=== PATIENT | male | born 1970 | race Caucasian/White ===

== ENCOUNTER 2017-04-18 12:13 | Inpatient (IN) | payer OTHER ==
[2017-04-09 14:13] VITALS: BMI 26.0
--- NOTE | 2017-04-09 14:44 | PAT Medication Instructions ---
Service Date Apr 09, 2017. Current Home Medication List Fluticasone Propionate (Nasal) (Flonase Allergy Relief), 1 DOSE PAM UD Pantoprazole (Protonix), Unknown Dose PO QAM Medication Instructions For Your Scheduled Surgery - Take the following medications the morning of surgery with a sip of water OTHERWISE NOTHING TO EAT OR DRINK AFTER MIDNIGHT: Pantoprazole (Protonix), Unknown Dose PO QAM Fluticasone Propionate (Nasal) (Flonase Allergy Relief), 1 DOSE PAM UD If you have any questions please call us at [phone] or [phone] or [phone]
[2017-04-09 15:03] LABS: URINE APPEARANCE CLEAR (CLEAR); URINE BILIRUBIN NEG (NEG); URINE COLOR YELLOW; URINE NITRITE NEG (NEG); UROBILINOGEN NEG (NEG); ZZUR CULT IF INDIC CLEAN CATCH NO
[2017-04-09 15:05] LABS: BASO % 0.3 %; BASO ABS # 0.03 K/uL (0-0.2); COMPLETE YES; EOS % 3.5 %; HEMATOCRIT 41.6 % (42-52); IG% 0.2 %; LYMPH % 28.7 %; LYMPH ABS # 2.57 K/uL (1.2-3.4); MEAN CELL VOLUME 87.9 fL (80-100); MEAN CORPUSCULAR HEMOGLOBIN 30.4 pg (25-34); MEAN CORPUSCULAR HGB CONC 34.6 g/dl (32-36); NEUT % 62.3 %; PLATELET COUNT 175 K/uL (130-400); RED BLOOD COUNT 4.73 M/uL (4.7-6.1); WHITE BLOOD COUNT 8.94 K/uL (4.8-10.8)
--- NOTE | 2017-04-09 15:05 | DIAGNOSTIC IMAGING REPORT ---
CHEST PREADMISSION(PA/LAT) CLINICAL HISTORY: Preoperative chest COMPARISON STUDY: No previous studies for comparison. FINDINGS: The cardiac and mediastinal contours are normal. There is no evidence of focal pulmonary consolidation. There is no evidence of failure. No pleural effusions are visualized.[ IMPRESSION: No active disease in the chest. Electronically signed by: Noe Cox M.D. 04/09/2017 3:04 PM Dictated Date/Time: 04/09/2017 3:03 PM
[2017-04-09 15:11] LABS: MANUAL MICROSCOPIC REQUIRED? NO; REVIEW REQ? NO
[2017-04-09 15:15] LABS: BUN/CREATININE RATIO 15.4 (10-20); CALCIUM 8.5 mg/dl (8.5-10.1); CREATININE 0.84 mg/dl (0.60-1.40); POTASSIUM 3.3 mmol/L (3.5-5.1)
[2017-04-18] VITALS (7 sets, daily range): BP systolic 106–156; BP diastolic 62–85; PULSE 54–86; TEMP 36.4–36.8; O2SAT 96–99; Ht 185.4 cm; Wt 89.5 kg
[~2017-04-18] VITALS: Ht 185.4 cm; Wt 89.5 kg
[~2017-04-18 12:13] MED LIST: CEFAZOLIN 2000 MG/60 ML D5W IV SCH; FLUT0.15 NAE; LACTATED RINGER'S 1000ML 1,000 ML IV SCH; PRT/20 PO
--- NOTE | 2017-04-18 13:26 | History & Physical Bridge Note ---
H&P Re-Evaluation Bridge Note: I have examined the patient, reviewed the History & Physical and in the interval since the performance of the History & Physical I have noted the following changes of clinical significance: No changes noted
--- NOTE | 2017-04-18 13:26 | History and Physical ---
History & Physical Date Apr 18, 2017. Chief Complaint Chronic back and leg pain History of Present Illness The patient is a 46 year old male with complaints of chronic back and leg pain Additional History Hepatic Disease: No Endocrine Disorder: No Kidney Disease: No Hypertension: No Heart Disease: No Bleeding Tendencies: No Infectious Diseases: No Allergies Coded Allergies: Tramadol (Verified Allergy, Unknown, "I FELT LIKE I OVERDOSED", LIGHTHEADEDNESS, DIZZINESS, 04/18/17) Home Medications Scheduled Fluticasone Propionate (Nasal) (Flonase Allergy Relief), 1 DOSE PAM UD Pantoprazole (Protonix), Unknown Dose PO QAM Diagnosis Lumbar spinal stenosis Plan of Treatment Lumbar decompression and fusion L5-S1
[2017-04-18] MEDS ORDERED: FENTANYL CITRATE INJ 50 MCG/1 ML 2 ML VIAL ONE ×2 (13:33→14:25)
[2017-04-18] MEDS ORDERED: MIDAZOLAM HCL 1 MG/ML 2ML VIAL ONE (13:33)
[2017-04-18] MEDS ORDERED: BACITRACIN 50000 UNIT VIAL ONE (13:54)
[2017-04-18] MEDS ORDERED: BUPIVACAINE/EPINEPHRINE 0.5% MPF 1:200,000 30 ML VIAL ONE (13:54)
[2017-04-18] MEDS ORDERED: HYDROmorphone INJ 2 MG/ML SYR/VIAL ONE (14:25)
[2017-04-18] MEDS ORDERED: LIDOCAINE HCL 2% 2 ML VIAL (20MG/ML) ONE (14:37)
[2017-04-18] MEDS ORDERED: ROCURONIUM BROMIDE 10 MG/ML 5 ML VIAL IV ONE (14:37)
[2017-04-18] MEDS ORDERED: PROPOFOL IV EMULSION 10 MG/ML 20 ML VIAL IV ONE (14:37)
[2017-04-18] MEDS ORDERED: DEXAMETHASONE SOD INJ 4 MG/ML VIAL ONE (14:37)
[2017-04-18] MEDS ORDERED: EpHEDrine SULFATE INJ 50 MG/ML AMP IV PRN (14:45)
[2017-04-18] MEDS ORDERED: FENTANYL CITRATE INJ 50 MCG/1 ML 2 ML VIAL IV PRN (14:45)
[2017-04-18] MEDS ORDERED: HYDROmorphone INJ 1 MG/ML SYR IV PRN (14:45)
[2017-04-18] MEDS ORDERED: ATROPINE SULFATE 0.1 MG/ML 5ML SYR IV PRN (14:45)
[2017-04-18] MEDS ORDERED: ONDANSETRON INJ 2 MG/ML 2 ML VIAL IV PRN ×2 (14:45→15:45)
[2017-04-18] MEDS ORDERED: PROMETHAZINE HCL INJ 6.25 MG in SODIUM CHLORIDE 0.9% 50ML 50 ML IV PRN (14:45)
[2017-04-18] MEDS ORDERED: FLOSEAL HEMOSTATIC MATRIX 10ML TOP ONE (15:27)
[2017-04-18] MEDS ORDERED: SODIUM CHLORIDE 0.9% 1000ML 1,000 ML IV SCH (15:40)
[2017-04-18] MEDS ORDERED: ACETAMINOPHEN IV 100 ML IV PRN (15:45)
[2017-04-18] MEDS ORDERED: hydrOXYzine HCL 25 MG TAB PO PRN (15:45)
[2017-04-18] MEDS ORDERED: BISACODYL 10 MG SUPP PR PRN (15:45)
[2017-04-18] MEDS ORDERED: FAMOTIDINE 20 MG TAB PO PRN (15:45)
[2017-04-18] MEDS ORDERED: LORAZEPAM INJ 0.5 MG in SYRINGE 0.75 ML IV PRN (15:45)
[2017-04-18] MEDS ORDERED: SOD PHOSPHATE/SOD BIPHOSPHATE ENEMA 132 ML BTL PR PRN (15:45)
[2017-04-18] MEDS ORDERED: LORAZEPAM 0.5 MG TAB PO PRN (15:45)
[2017-04-18] MEDS ORDERED: PROMETHAZINE HCL INJ 12.5 MG in SODIUM CHLORIDE 0.9% 50ML 50 ML IV PRN (15:45)
[2017-04-18] MEDS ORDERED: METOCLOPRAMIDE HCL INJ 5 MG/ML 2 ML VIAL IV PRN (15:45)
[2017-04-18] MEDS ORDERED: DO NOT ADMINISTER FLU VACCINE PRN ×3 (15:45)
[2017-04-18] MEDS ORDERED: ALUMINUM/MAGNESIUM SUSP 30 ML UDC PO PRN (15:45)
[2017-04-18] MEDS ORDERED: DO NOT ADMINISTER PNEUMOCOCCAL VACCINE PRN ×2 (15:45)
[2017-04-18] MEDS ORDERED: NALOXONE HCL 0.4 MG/1 ML VIAL/CARP IV PRN ×2 (15:45)
[2017-04-18] MEDS ORDERED: MAGNESIUM HYDROXIDE SUSP 30 ML UDC PO PRN (15:45)
--- NOTE | 2017-04-18 15:50 | [facility] Operative Report ---
Operative Report Operative Date Apr 18, 2017. Pre-Operative Diagnosis Lumbar Spinal Stenosis. Post-Operative Diagnosis Lumbar Spinal Stenosis. Procedure(s) Performed #1 lumbar decompression medial facetectomies foraminotomies L5-S1. #2 posterior spinal fusion L5-S1. #3 placement posterior instrumentation L5-S1. #4 interbody fusion L5-S1. #5 placement peek cage 11 x 26 mm at L5-S1. #6 placement locally harvested morcellized autograft in the posterior gutters. #7 placement of ostial amp in the interbody space and posterior lateral gutters. Surgeon Operator Electronic Warfare Surgeon(s) Amanda Aguirre PA-C Estimated Blood Loss 50mL Findings Spinal stenosis Specimens None per surgeon. Description of Procedure Patient was met with preoperatively case discussed all questions are dressed. After informed consent patient was taken to the operative suite and intubated placed in a prone position on the Oli table on top of the Stanton frame. All bony prominences were well-padded and eyes inspected to ensure no external pressure. Lumbar spine was prepped and draped in the normal sterile fashion. Sharp dissection with the assistance of Bovie cautery was performed onto an exposing the lamina and transverse processes of L5 and sacral alar bilaterally. From a caudal to cephalad fashion complete laminectomy of L5 was performed including medial facetectomies and foraminotomies. Pedicle screws are then placed in L5 and S1 bilaterally. The purposes poly placed. Through a transforaminal approach on the right complete discectomy of L5 S1 was performed and plate created subcortical bleeding bone and a limb by 26 [place] peek cage filled with ostial amp tapped in position. The rods were then locked and final position bilaterally. Transverse processes of L5 and sacral alar burred to subcortical bleeding bone. Locally harvested morcellized autograft the remaining ostial amp bone graft placed in the posterior gutters. 15 round KEYUR drain was inserted. Incision was then closed with 1 Vicryl in the fascia 2-0 Vicryl subcutaneously 4-0 Monocryl for final skin closure Steri-Strip sterile dressing placed. Patient we can taken to PACU in a stable condition. Please note Amanda Kirkpatrick was present throughout the entire procedure involved in patient positioning complex portions of the surgery and final skin closure. I attest to the content of the Intraoperative Record and any orders documented therein. Any exceptions are noted below.
--- NOTE | 2017-04-18 15:55 | DIAGNOSTIC IMAGING REPORT ---
LUMBAR SPINE 2 OR 3 VIEW CLINICAL HISTORY: L5-S1 FUSION/INTERBODY COMPARISON STUDY: Lumbar spine radiographs September 07, 2015. Fluoroscopy time: 11.6 seconds. FINDINGS: 2 fluoroscopic images demonstrate an L5-S1 discectomy with interbody spacer placement. There is a posterior decompression with bilateral pedicle screws at the L5 and S1 levels. The hardware is intact. There are interconnecting rods. IMPRESSION: Expected findings following L5-S1 discectomy and bilateral pedicle screw fusion. Electronically signed by: Scar Maria M.D. 04/18/2017 3:54 PM Dictated Date/Time: 04/18/2017 3:53 PM
[2017-04-18] MEDS ORDERED: HYDROmorphone HCL 0.5MG/ML 50 ML CASSETTE ONE (15:57)
--- NOTE | 2017-04-18 16:20 | Anesthesiology Progress Note ---
Anesthesia Post Op Note Date & Time Apr 18, 2017 at 16:20 Vital Signs Pain Intensity: 6 Vital Signs Past 12 Hours Date Time Temp Pulse Resp B/P (MAP) Pulse Ox O2 Delivery O2 Flow Rate FiO2 04/18/17 15:54 36.6 80 16 129/80 100 Oxymask 10 04/18/17 12:34 36.4 77 20 136/84 97 Room Air Notes Mental Status: alert / awake / arousable, participated in evaluation Pt Amnestic to Procedure: Yes Nausea / Vomiting: adequately controlled Pain: adequately controlled Airway Patency, RR, SpO2: stable & adequate BP & HR: stable & adequate Hydration State: stable & adequate Anesthetic Complications: no major complications apparent
[2017-04-18] MEDS: HYDROmorphone HCL 0.5MG/ML 50 ML CASSETTE IV PRN ×2 (16:53→23:25)
[2017-04-18] MEDS: LACTATED RINGER'S 1000ML 1,000 ML IV SCH ×2 (17:33→21:52)
[2017-04-18] MEDS ORDERED: INFLUENZA ADMINISTRATION CHARGE ONE (19:00)
[2017-04-18] MEDS ORDERED: INFLUENZA VIRUS QUAD VACCINE 0.5 ML SYR IM. ONE (19:00)
[2017-04-18] MEDS: DOCUSATE SODIUM/SENNA 50/8.6MG TAB PO SCH (21:07)
[2017-04-18] MEDS: CEFAZOLIN IV 2,000 MG in DEXTROSE 5% 50ML 50 ML IV SCH (21:53)
[2017-04-18] MEDS: DEXAMETHASONE INJ 6 MG in SYRINGE 0 ML IV SCH (21:53)
[2017-04-19] MEDS: LACTATED RINGER'S 1000ML 1,000 ML IV SCH (05:00)
[2017-04-19] MEDS ORDERED: HYDROmorphone INJ 0.5 MG/0.5 ML SYR IV PRN (06:00)
[2017-04-19] MEDS ORDERED: DC PCA SCH (06:00)
[2017-04-19] MEDS ORDERED: HYDROmorphone INJ 1 MG/ML SYR IV PRN (06:00)
[2017-04-19] MEDS ORDERED: OXYCODONE HCL IR 5 MG TAB (IMMEDIATE RELEASE) PO PRN (06:00)
[2017-04-19] MEDS: CEFAZOLIN IV 2,000 MG in DEXTROSE 5% 50ML 50 ML IV SCH (06:15)
[2017-04-19] MEDS ORDERED: NURSING VERBAL MED ORDER ONE ×3 (07:15→13:15)
[2017-04-19 07:39] LABS: BASO % 0.1 %; BASO ABS # 0.01 K/uL (0-0.2); COMPLETE YES; HEMATOCRIT 42.7 % (42-52); IG% 0.5 %; LYMPH % 6.9 %; LYMPH ABS # 1.37 K/uL (1.2-3.4); MEAN CELL VOLUME 88.2 fL (80-100); MEAN CORPUSCULAR HEMOGLOBIN 29.5 pg (25-34); MEAN CORPUSCULAR HGB CONC 33.5 g/dl (32-36); MONO % 2.7 %; NEUT % 89.8 %; PLATELET COUNT 198 K/uL (130-400); RED BLOOD COUNT 4.84 M/uL (4.7-6.1); WHITE BLOOD COUNT 19.81 K/uL (4.8-10.8)
[2017-04-19 08:04] VITALS: BP 124/62; PULSE 82; TEMP 36.8; O2SAT 93
[2017-04-19 08:11] LABS: BUN/CREATININE RATIO 15.1 (10-20); CREATININE 0.85 mg/dl (0.60-1.40); POTASSIUM 3.9 mmol/L (3.5-5.1)
[2017-04-19] MEDS: ACETAMINOPHEN 500 MG TAB PO PRN ×2 (08:14→18:33)
[2017-04-19] MEDS: DEXAMETHASONE INJ 6 MG in SYRINGE 0 ML IV SCH ×2 (08:15→14:16)
--- NOTE | 2017-04-19 10:07 | Anesthesiology Progress Note ---
Anesthesia Post Op Note Date & Time Apr 19, 2017 at 10:07 Vital Signs Pain Intensity: 3.0 Vital Signs Past 12 Hours Date Time Temp Pulse Resp B/P (MAP) Pulse Ox O2 Delivery O2 Flow Rate FiO2 04/19/17 08:04 36.8 82 19 124/62 (82) 93 Room Air 04/19/17 00:15 Room Air 04/18/17 23:00 36.6 54 18 118/71 (87) 96 Room Air Notes Mental Status: alert / awake / arousable, participated in evaluation Pt Amnestic to Procedure: Yes Nausea / Vomiting: adequately controlled Pain: adequately controlled Airway Patency, RR, SpO2: stable & adequate BP & HR: stable & adequate Hydration State: stable & adequate Anesthetic Complications: no major complications apparent
[2017-04-19 10:38] VITALS: BP 109/72; PULSE 80; O2SAT 93
[2017-04-19] MEDS ORDERED: FLUTICASONE PROPIONATE NA SPR 16 GM BTL PRN (11:30)
--- NOTE | 2017-04-19 11:55 | Progress Note ---
Progress Note Date of Service Apr 19, 2017. Progress Note Back pain is controlled. Leg pain improved. Vital signs stable. On exam he is complaining halls demonstrated excellent strength testing. Assessment status post lumbar decompression fusion replant this time will maintain the KEYUR drain another 24 hours anticipate home tomorrow.
[2017-04-19] MEDS ORDERED: RXC5 PO (11:59)
--- NOTE | 2017-04-19 12:00 | Discharge Instructions ---
Discharge Instructions Date of Service Apr 19, 2017. Admission Reason for Admission: Spinal Stenosis Discharge Discharge Diagnosis / Problem: lumbar stenosis Discharge Goals Goal(s): Improve function Activity Recommendations Activity Limitations: per Instructions/Follow-up section . Instructions / Follow-Up Instructions / Follow-Up ACTIVITY RECOMMENDATIONS: SELF CARE INSTRUCTIONS AFTER THORACIC/LUMBAR FUSIONS 1. You may walk to your tolerance. It is good exercise for your legs and back. Expect some back and intermittent leg aches and pains. 2. You may perform "counter-top" level activities (make a sandwich, carmelo with a project, etc.). 3. No bending or lifting of more than 10 pounds or back twisting of any nature (roll like a log when turning in bed). 4. You may ride in a car for 20-30 minutes at a time. No driving until after your first visit with your doctor. 5. Frequent changes of position and restricting sitting to 30 minutes at a time will help limit the amount of back spasms and stiffness you may experience. 6. You may discontinue the use of ambulatory aids (cane, crutches, etc.) once your strength and confidence allow. 7. You may washing machine repairer the shower and let water strike your incision when you arrive home at least once daily. Do not take a tub bath, sit in a hot tub or go into a swimming pool until after your first recheck in the office. SPECIAL CARE INSTRUCTIONS: VERY IMPORTANT TO READ AND REVIEW A. Your surgical incision has been closed with a cosmetic suture under the skin that will dissolve in about 6 weeks. In 14 days, you can use a pair of clean scissors and cut the suture that is left outside of the skin at the ends of your incision. 1. The small skin tapes can be removed 7 days after surgery if they have not fallen off by that point. 2. You may keep the wound open to air as much as possible to promote healing after post-op day number 5 unless told otherwise by your doctor. 3. If you think the wound looks like it is becoming infected (redness or worsening drainage) and/or you are experiencing fever, chill or worsening back pain and muscle spasms, contact the office so that we may evaluate you as soon as possible. B. Complications are uncommon, but please contact us if you have any signs or symptoms of: 1. wound infection (fever higher than 102.5 degrees F, redness, separation of wound, drainage, or increasing pain from the incision) 2. blood clots in legs (pain, swelling, redness and warmth in legs) 3. urinary tract infection (fever higher than 102.5 degrees F, burning upon urination or increased frequency of urination) 4. nerve problems (inability to walk on your toes or heels, numbness, loss of bowel or bladder control) 5. any other symptoms that concern you C. Please call the office at if you have any concerns or questions about your operation or recovery. D. No smoking! Smoking drastically decreases the chance of a solid fusion. E. Do not take any anti-inflammatory medications (Indocin, Advil, Motrin, Aspirin, Naprosyn, etc.) as these may inhibit the chance of a solid fusion. Tylenol is okay to take for pain. MANAGING PAIN AFTER SPINAL SURGERY 1. Narcotic medication is intended for short-term use and will be provided for surgical pain. Surgical pain usually lasts for a period of 4-6 weeks. Narcotic medication includes Percocet, Vicodin, Darvocet, Tylenol #3 or Lortab. 2. Longer-term pain is more appropriately treated with non-narcotic medication such as Tylenol ES. 3. Muscle spasm is not appropriately treated with narcotics. Muscle relaxers such as Soma, Flexeril or Skelaxin can be used along with Tylenol ES. 4. Remember that we all live with some "aches and pains". This is not unusual or uncommon after an injury or as we get older. a. Back pain is expected and may include muscle spasms for 4 to 6 weeks after surgery. The pain should gradually improve. If the pain worsens for no apparent reason, please contact the office. b. Intermittent leg pain may also be experienced and should not be concerned about unless it worsens for no apparent reason. If so, please contact the office. 5. We will provide appropriate medication within the normal guidelines of their prescribed use. We will also be very cautious and aware of potential abuse and extended duration of patients' medication needs. a. Pain medications are for your comfort and to assist with sleep and rest so that the tissue can heal. They are not provided in order to return to normal activity and should not be used through the day. To do so or worsening pain at night can result from ongoing tissue damage and development of tolerance to the prescribed medicine. 6. Please allow 2-3 days to process refills. Prescriptions will not be mailed but must be picked up at the office. FOLLOW UP VISIT: Keep your scheduled follow-up appointment. Any questions, please call the office at . Current Hospital Diet Patient's current hospital diet: Regular Diet Discharge Diet Recommended Diet: Regular Diet Procedures Procedures Performed: #1 lumbar decompression medial facetectomies foraminotomies L5-S1. #2 posterior spinal fusion L5-S1. #3 placement posterior instrumentation L5-S1. #4 interbody fusion L5-S1. #5 placement peek cage 11 x 26 mm at L5-S1. #6 placement locally harvested morcellized autograft in the posterior gutters. #7 placement of ostial amp in the interbody space and posterior lateral gutters. Pending Studies Studies pending at discharge: no Medical Emergencies . Who to Call and When: Medical Emergencies: If at any time you feel your situation is an emergency, please call 911 immediately. . Non-Emergent Contact Non-Emergency issues call your: Primary Care Provider . "Provider Documentation" section prepared by Nick De Anda. . VTE Core Measure Inpt VTE Proph given/why not?: Kelly Young, [facility]
[2017-04-19] MEDS: PANTOprazole SOD 40 MG TAB PO SCH (14:15)
[2017-04-19 14:59] VITALS: BP 103/62; PULSE 70; TEMP 36.8; O2SAT 93
[2017-04-19] MEDS: DOCUSATE SODIUM/SENNA 50/8.6MG TAB PO SCH (22:22)
[2017-04-19 23:50] VITALS: BP 118/69; PULSE 66; TEMP 36.7; O2SAT 94
[2017-04-20] MEDS ORDERED: POLYETHYLENE (MIRALAX) 17 GM PACK PO SCH (06:00)
[2017-04-20 07:46] VITALS: BP 112/69; PULSE 75; TEMP 36.8; O2SAT 95
[2017-04-20] MEDS: PANTOprazole SOD 40 MG TAB PO SCH (08:33)
[2017-04-20 09:58] VITALS: BP 112/69; PULSE 75; TEMP 36.8; O2SAT 95
[2017-04-20] MEDS: ACETAMINOPHEN 500 MG TAB PO PRN (10:23)
--- NOTE | 2017-04-20 16:03 | Discharge Summary ---
Orthopedic Discharge Summary Admission Date/Reason Apr 18, 2017 at 15:45 Spinal Stenosis. Discharge Date/Disposition Apr 20, 2017 Home Diagnosis Principal Diagnosis: Lumbar spinal stenosis Admission Physical Exam As per Admitting History & Physical. Hospital Course Patient underwent lumbar decompression fusion tolerated this well as taken to the orthopedic floor postoperatively. Postoperative day 1 is up in amatory leg symptoms markedly improved stability in 2 weeks continued progressed pain is controlled subsequently discharged home. Discharge orders and instructions found on the chart for further review. Discharge Instructions Please refer to the electronic Patient Visit Report (Discharge Instructions) for additional information.
== END 2017-04-20 11:20 | disposition home or self-care (01) | DRG 460 ==
LOC: C.ACU 12:13 → C.3E 15:45 → ENRESERV 16:31 → C.MSW 22:59
PROVIDERS: ADMIT Orthopaedic Surgery Orthopaedic Surgery of the Spine; ATTEND Orthopaedic Surgery Orthopaedic Surgery of the Spine
PROC: 0SG10AJ Fusion of 2 or more Lumbar Vertebral Joints with Interbody Fusion Device, Posterior Approach, Anterior Column, Open Approach (ICD-10-PCS; principal; 2017-04-18 14:15)
PROC: 0SG10J1 Fusion of 2 or more Lumbar Vertebral Joints with Synthetic Substitute, Posterior Approach, Posterior Column, Open Approach (ICD-10-PCS; principal; 2017-04-18 14:15)
DX: M48.06 Spinal stenosis, lumbar region (principal)

== ENCOUNTER 2019-08-29 05:52 | Observation (INO) ==
--- NOTE | 2019-08-14 13:04 | PAT Medication Instructions ---
Medication Instructions Date of Service August 14, 2019 Home Medications Wellbutrin SR 1 tab PO BID acetaminophen [Tylenol] 325 mg PO QID PRN [id number]-yonflpztdlimp-axjrubmb [Excedrin Migraine] 1 tab PO Q6H PRN baclofen 15 mg PO BID fluticasone furoate 50 mcg INHALATION UD PRN gabapentin 600 mg PO QID meloxicam 15 mg PO QAM pantoprazole [Protonix] 40 mg PO QAM ASK your surgeon for instructions [id number]-ctecepmfqpcjp-ghlfcbbo [Excedrin Migraine] 1 tab PO Q6H PRN meloxicam 15 mg PO QAM DO NOT take the morning of surgery baclofen 15 mg PO BID Take morning of surgery With a small sip of water, OTHERWISE NOTHING TO EAT OR DRINK AFTER MIDNIGHT: Wellbutrin SR 1 tab PO BID acetaminophen [Tylenol] 325 mg PO QID PRN (okay to take up to 4 hours prior to surgery if needed) fluticasone furoate 50 mcg INHALATION UD PRN (if needed) gabapentin 600 mg PO QID pantoprazole [Protonix] 40 mg PO QAM Take evening before surgery Wellbutrin SR 1 tab PO BID acetaminophen [Tylenol] 325 mg PO QID PRN (if needed) baclofen 15 mg PO BID fluticasone furoate 50 mcg INHALATION UD PRN (if needed) gabapentin 600 mg PO QID Other Notes If you have any questions please call us at [phone] or [phone] or [phone] or [phone]
--- NOTE | 2019-08-15 10:22 | Anesthesiology Consultation ---
Date of Service August 15, 2019 Assessment & Plan (1) Encounter for pre-operative examination: Chart Review Chart Review: Acceptable Risk for Surgery and Patient seen in Pre Admission Testing Teaching & Discussion Pre-Anesthesia Teaching/Discussion Notes: Instructed NPO after midnight before surgery,except medications with 15 cc of water. Medication instructions provided according to the PAT guidelines. History Surgery Operation Date: 08/29/19 13:35 Proposed Procedures p C5-C7 Anterior Cervical Discectomy Fusion, Possible C4-C5, Spinal Cord Monitoring - Nick De Anda DO Height/Weight Height: 6 ft 2 in Weight: 101.4 kg Allergies Allergy/AdvReac Type Severity Reaction Status Date / Time tramadol AdvReac Unknown lightheaded, Verified 08/15/19 10:23 dizziness Medications Home Medications Medication Instructions Recorded Confirmed Last Taken Wellbutrin SR 1 tab PO BID 08/12/19 08/12/19 Unknown acetaminophen [Tylenol] 325 mg PO QID PRN 08/12/19 08/12/19 Unknown bvpdtim-xgeenwpuognmc-rkgubqfg 1 tab PO Q6H PRN 08/12/19 08/12/19 Unknown [Excedrin Migraine] baclofen 15 mg PO BID 08/12/19 08/12/19 Unknown fluticasone furoate 50 mcg INHALATION UD PRN 08/12/19 08/12/19 Unknown gabapentin 600 mg PO QID 08/12/19 08/12/19 Unknown meloxicam 15 mg PO QAM 08/12/19 08/12/19 Unknown pantoprazole [Protonix] 40 mg PO QAM 08/12/19 08/12/19 Unknown Past Medical History Medical History Carpal tunnel syndrome Cubital tunnel syndrome Degenerative disc disease GERD (gastroesophageal reflux disease) controlled History of migraine IBS (irritable bowel syndrome) Osteoarthritis Sciatica Spinal stenosis Exercise / Class Metabolic Activity II 4-5 Yardwork/Stairs/Walk up hill (one flight of stairs (no chest pain/no sob)) Past Family History Family History Grandmother (Paternal) Family history of diabetes mellitus Grandmother (Maternal) Family history of diabetes mellitus Grandfather (Maternal) Family hx of colon cancer Other No family history of adverse response to anesthesia Past Surgical History Surgical History History of lumbar fusion L5-S1: 04/18/17: MAC#3, ETT 8.0 at [facility] History of shoulder surgery RT History of tooth extraction S/P cubital tunnel release Status post excision of lipoma Past Anesthesia History No Hx of Anesthesia Complications and No Family Hx of Anesthesia Complications History of PONV History of PONV (resolved with medical therapy quickly x 1 episode with prior lumbar surgery) and Hx of Motion Sickness STOP BANG Total 2 Social History Smoking Status: Current every day smoker tobacco type: cigarettes Smoking cigarettes per day: 10 cigarettes/day x 20 years Do You Dip or Chew Tobacco: No Hx Alcohol Use: No Hx Substance Use: No Review of Systems Controlled reflux. Patient denies chest pain, shortness of breath, dyspnea on exertion, cough, wheezing, palpitations. Physical Exam Vital Signs VITALS BP 115/80 P 71 TEMP 97.8 SP02 96%RA RESP 18 PHYSICAL Decreased cervical extension 2/2 cervicalgia Full TMJ range of motion. TMD 3.5 finger breaths Mallampati Score 2 Dentition: several missing teeth including left lower front tooth, + partials Lungs: clear throughout to auscultation Cardiac: regular rate and rhythm, no murmurs noted Spine: normal Carotid arteries: negative bruit Extremities: no edema + reis (medium length, thin reis from chin, neck/check area clean- advised patient to trim prior to surgery otherwise will need to be discussed with anesthesiologist AM DOS if further trimming needed) Testing Laboratory Results 08/15/19 10:36 08/15/19 10:36 PT 10.9 Seconds (9.0-12.0) 08/15/19 10:36 INR 1.1 (0.9-1.1) 08/15/19 10:36 APTT 26.6 Seconds (21.0-31.0) 08/15/19 10:36 Urine Color Yellow 08/15/19 10:36 Urine Appearance Clear (Clear) 08/15/19 10:36 Urine pH 6.0 (4.5-7.5) 08/15/19 10:36 Ur Specific Lyman 1.008 (1.000-1.030) 08/15/19 10:36 Urine Protein Negative (Negative) 08/15/19 10:36 Urine Glucose (UA) Negative (Negative) 08/15/19 10:36 Urine Ketones Negative (Negative) 08/15/19 10:36 Urine Nitrite Negative (Negative) 08/15/19 10:36 Ur Leukocyte Esterase Negative (Negative) 08/15/19 10:36 Blood Type A Positive 08/15/19 10:36 Antibody Screen NEGATIVE 08/15/19 10:36 Electrocardiogram Date: 08/15/19 NSR at 67bpm. Rightward axis. iRBBB. No significant change compared to 04/09/17 per cardiology. Chest X-Ray Date: 08/15/19 Subsegmental atelectasis left base. Otherwise negative study.
--- NOTE | 2019-08-15 11:12 | XRay Report ---
XR chest Pre-admission PA/Lat CLINICAL HISTORY: pat preoperative evaluation COMPARISON STUDY: 2016 FINDINGS: Subsegmental atelectasis left base. Lungs otherwise appear clear. Diaphragms are smooth. IMPRESSION: Subsegmental atelectasis left base. Otherwise negative study. ACT 112: Negative or not required by law. The above report was generated using voice recognition software. It may contain grammatical, syntax or spelling errors. Electronically signed by: Brandon Ruby M.D. 08/15/2019 11:10 AM
[2019-08-15 11:31] LABS: Basophils # (auto) 0.04 K/uL (0-0.2); Basophils % (auto) 0.5 %; Eosinophils # (auto) 0.36 K/uL (0-0.5); Eosinophils % (auto) 4.1 %; Hematocrit (blood only) 46.7 % (42-52); Hemoglobin 16.1 g/dL (14.0-18.0); Immature Granulocytes # (auto) 0.02 K/uL (0.00-0.02); Immature Granulocytes % (auto) 0.2 %; Lymphocytes # (auto) 2.56 K/uL (1.2-3.4); Lymphocytes % (auto) 28.9 %; Mean Corpuscular Hgb Conc 34.5 g/dL (32-36); Mean Corpuscular Volume 87.1 fL (80-100); Mean Platelet Volume 11.1 fL (7.4-10.4); Monocytes # (auto) 0.45 K/uL (0.11-0.59); Monocytes % (auto) 5.1 %; Neutrophils # (auto) 5.42 K/uL (1.4-6.5); Neutrophils % (auto) 61.2 %; Platelet Count 164 K/uL (130-400); RDW Coefficient of Variation 13.4 % (11.5-14.5); RDW Standard Deviation 42.6 fL (36.4-46.3); Red Blood Count 5.36 M/uL (4.7-6.1); White Blood Count 8.85 K/uL (4.8-10.8)
[2019-08-15 11:32] LABS: Appearance Urine Clear (Clear); Bilirubin Urine Negative (Negative); Blood Urine Negative (Negative); Color Urine Yellow; Glucose Urine UA Negative (Negative); Ketones Urine Negative (Negative); Leukocyte Esterase Urine Negative (Negative); Nitrite Urine Negative (Negative); Protein Urine Negative (Negative); Specific Gravity Urine 1.008 (1.000-1.030); Urobilinogen Urine Negative (Negative)
[2019-08-15 11:37] LABS: BUN Creatinine Ratio 18.5 (10-20); Calcium 8.9 mg/dl (8.5-10.1); Creatinine Clr Calc Pharmacy 101.8 ml/min; Est GFR (African American) 88.3; Est GFR (Non-African American) 76.2
[2019-08-15 11:46] LABS: INR 1.1 (0.9-1.1); Partial Thromboplastin Time 26.6 Seconds (21.0-31.0); Prothrombin Time 10.9 Seconds (9.0-12.0)
--- NOTE | 2019-08-15 12:16 | Electrocardiogram Report ---
Test Reason : Blood Pressure : / mmHG Vent. Rate : 067 BPM Atrial Rate : 067 BPM P-R Int : 170 ms QRS Dur : 098 ms QT Int : 402 ms P-R-T Axes : -10 094 066 degrees QTc Int : 424 ms Normal sinus rhythm Rightward axis Incomplete right bundle branch block Borderline ECG When compared with ECG of 09-APR-2017 14:10, No significant change was found Confirmed by Bret Alberts ([id number]) on 08/15/2019 12:16:34 PM Referred By: Nick De Anda Confirmed By:Bret Alberts
[2019-08-29] MEDS ORDERED: ACETAMINOPHEN 500 MG TAB PO SCH (06:00)
[2019-08-29] MEDS ORDERED: GABAPENTIN 900 MG DOSE PO SCH (06:00)
[2019-08-29] MEDS ORDERED: CEFAZOLIN 2000MG 2,000 MG/15 ML SYR IV SCH (06:00)
[2019-08-29] MEDS ORDERED: CeleBREX 200 MG CAP PO SCH (06:00)
[2019-08-29] MEDS ORDERED: LR 15ML/HR IV SCH (06:00)
[2019-08-29] MEDS ORDERED: PROPOFOL IV EMULSION 10 MG/ML 100 ML VIAL IV ONE (06:46)
[2019-08-29] MEDS ORDERED: ONDANSETRON INJ 2 MG/ML 2 ML VIAL ONE (06:47)
[2019-08-29] MEDS ORDERED: DEXAMETHASONE SOD INJ 4 MG/ML VIAL ONE ×2 (06:47→08:19)
[2019-08-29] MEDS ORDERED: fentaNYL citrate 100 MCG/2 ML VIAL ONE ×2 (06:48→08:06)
[2019-08-29] MEDS ORDERED: HYDROmorphone INJ 2 MG/ML SYR/VIAL ONE (06:48)
[2019-08-29] MEDS ORDERED: MIDAZOLAM HCL 1 MG/ML 2ML VIAL ONE (06:48)
[2019-08-29] MEDS ORDERED: ePHEDrine sulfate 50 MG/ML AMP IV PRN (06:55)
[2019-08-29] MEDS ORDERED: ATROPINE SULFATE 0.1 MG/ML 10ML SYR IV PRN (06:55)
[2019-08-29] MEDS ORDERED: fentaNYL citrate 100 MCG/2 ML VIAL IV PRN (06:55)
[2019-08-29] MEDS ORDERED: ONDANSETRON INJ 2 MG/ML 2 ML VIAL IV PRN ×2 (06:55→11:09)
[2019-08-29] MEDS ORDERED: SCOPOLAMINE 1.5 MG TDSY ONE (07:02)
[2019-08-29] MEDS ORDERED: SCOPOLAMINE 1.5 MG TDSY TD ONE (07:04)
[2019-08-29] MEDS ORDERED: BACITRACIN INJ 50,000 UNIT VIAL ONE (07:11)
--- NOTE | 2019-08-29 07:20 | History & Physical Bridge Note ---
Date of Service August 29, 2019 History & Physical Bridge Note I have examined the patient, reviewed the History & Physical and in the interval since the performance of the History & Physical I have noted the following changes of clinical significance: no changes noted
--- NOTE | 2019-08-29 07:21 | History & Physical Report ---
Date of Service August 29, 2019 Assessment & Plan (1) Cervical stenosis of spinal canal: C5-C7 anterior cervical discectomy and fusion, possible C4-C5 fusion Present on Admission?: Yes History of Present Illness Chief Complaint: Neck and arm pain Primary Care Provider: Salvador Chavez MD This is a 49-year-old male presents with chronic persistent neck and arm symptoms. After failing extensive course of nonoperative care he is here for surgical intervention. Allergies Allergy/AdvReac Type Severity Reaction Status Date / Time tramadol AdvReac Unknown lightheaded, Verified 08/29/19 06:21 dizziness Home Medications Home Medications Medication Instructions Recorded Confirmed Type Wellbutrin SR 1 tab PO BID 08/12/19 08/29/19 History acetaminophen [Tylenol] 325 mg PO QID PRN 08/12/19 08/29/19 History xpqvkqq-mptnzmmvtsejr-eyppgzwn 1 tab PO Q6H PRN 08/12/19 08/29/19 History [Excedrin Migraine] baclofen 15 mg PO BID 08/12/19 08/29/19 History fluticasone furoate 50 mcg INHALATION UD PRN 08/12/19 08/29/19 History gabapentin 600 mg PO QID 08/12/19 08/29/19 History meloxicam 15 mg PO QAM 08/12/19 08/29/19 History pantoprazole [Protonix] 40 mg PO QAM 08/12/19 08/29/19 History Past Med/Surg History Medical History Carpal tunnel syndrome Cubital tunnel syndrome Degenerative disc disease GERD (gastroesophageal reflux disease) controlled History of migraine IBS (irritable bowel syndrome) Osteoarthritis Sciatica Spinal stenosis Surgical History History of lumbar fusion L5-S1: 04/18/17: MAC#3, ETT 8.0 at [facility] History of shoulder surgery RT History of tooth extraction S/P cubital tunnel release Status post excision of lipoma Family History Grandmother (Paternal) Family history of diabetes mellitus Grandmother (Maternal) Family history of diabetes mellitus Grandfather (Maternal) Family hx of colon cancer Other No family history of adverse response to anesthesia Social History Preferred Language: Gambian Communication Ability: Effective 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 Results & Data Vital Signs (Past 12 Hours) Vital Signs Temp Pulse Resp BP Pulse Ox 08/29/19 06:24 36.9 C 74 18 142/87 H 96
[2019-08-29] MEDS ORDERED: ROCURONIUM BROMIDE 10 MG/ML 5 ML VIAL ONE (08:08)
[2019-08-29] MEDS ORDERED: PROPOFOL IV EMULSION 10 MG/ML 20 ML VIAL IV ONE (08:08)
[2019-08-29] MEDS ORDERED: LIDOCAINE HCL 2% 2 ML VIAL/AMP(20MG/ML) INFIL ONE (08:08)
[2019-08-29] MEDS ORDERED: SUCCINYLCHOLINE CHLORIDE 20 MG/ML 10 ML VIAL ONE (08:08)
[2019-08-29] MEDS ORDERED: GLYCOPYRROLATE 0.2 MG/ML VIAL ONE (08:20)
[2019-08-29] MEDS ORDERED: NEOSTIGMINE METHYLSULFATE 1 MG/ML 10ML VIAL ONE (08:20)
[2019-08-29] MEDS ORDERED: FLOSEAL HEMOSTATIC MATRIX 10ML TOP ONE (08:57)
--- NOTE | 2019-08-29 09:07 | Operative Report ---
Post Operative Report Pre & Post Diagnosis Operation Date: 08/29/19 07:45 Pre-Op Diagnosis: Spinal Stenosis, Cervical Region Post-Op Diagnosis: Spinal Stenosis, Cervical Region I identified the patient and participated in the time-out.: Yes Procedure Operation Date: 08/29/19 07:45 Actual Procedures #1 anterior cervical discectomy with bilateral foraminotomies C5-6 C6-7. #2 anterior cervical arthrodesis C5-6 C6-7. #3 placement of Spira 8 mm cage filled with DBM at C5-6 and C6-7. #4 application of nunez plate and screws across C5- 6 C6-7. Surgeon Nick De Anda, DO Shaft Tender Rashad Schwarz Estimated Blood Loss 10 Findings Consistent with Post-Op Diagnosis Specimens None Indications This is a 49-year-old male that presents with above-mentioned diagnosis after failing extensive course of nonoperative care is here for surgical invention. Description of Procedure Patient was met with identified informed consent obtained. Patient was then taken to the operative suite underwent an patient placed in supine position the Oli table on top Stanton frame. All bony prominences well-padded eyes inspected to ensure no external pressure placed upon them. This point the anterior cervical spine was prepped and draped in normal sterile fashion. The assistance of fluoroscopy identified the C6 vertebral body transverse incision was placed along the right anterior aspect of the cervical spine overlying his region. Sharp dissection with assistance of bipolar electrocautery was performed down to and exposing the anterior cervical spine from C5-C7. Self- retaining retractors placed. Then performed a complete discectomy at C5-6 out to the uncovertebral's bilaterally. Chamois distracting pins were utilized. Removed all posterior annular fibers longitudinal ligament bilateral foraminotomies performed. Endplates were then burred to subcortical bleeding bone and a 8 mm Spira cage filled with DBM tapped in position. Distracting apparatus was removed and I proceeded to C6 7. Again and a complete discectomy performed endplates curetted to subcortical bleeding bone and all posterior annular fibers longitudinal ligament removed as well as bilateral foraminotomies. Endplates produce subcortical bleeding bone and a 8 mm spiral cage filled with DBM tapped in position. Distracting apparatus removed and a 34 mm 5 complete screws applied with the assistance of fluoroscopy. Incision was then copiously irrigated explored to ensure no damage to surrounding structures remaining bleeding. 10 round KEYUR drain inserted. Incision was then closed with 2 Vicryl in a fashion of 4 Monocryl for final closure. Steri-Strips dressings placed. Patient will continue to PACU stable condition. Please note Rashad Schwarz was present at the entire procedure involved the patient positioning complex portions of the surgery and final skin closure. Lastly spinal cord monitoring was utilized that the procedure no changes noted. I attest to the content of the Intraoperative Record and any orders documented therein. Any exceptions are noted below.
--- NOTE | 2019-08-29 09:33 | Fluoroscopy Report ---
FL cervical 2-3V CLINICAL HISTORY: C5-C7 ACDF COMPARISON STUDY: Cervical spine MRI October 18, 2015 FLUOROSCOPY TIME: 13 seconds. FLUOROSCOPIC IMAGES: 2 FINDINGS: Exact localization is difficult given partial visualization of the cervical spine, however suggest a C5-C7 anterior discectomy and fusion. These images demonstrate a multilevel anterior cervic al discectomy and fusion. Hardware is intact. IMPRESSION: Fluoroscopy provided for an anterior cervical discectomy and fusion. ACT 112: Negative or not required by law. Electronically signed by: Scar Maria M.D. 08/29/2019 9:32 AM
--- NOTE | 2019-08-29 10:48 | Anesthesiology Progress Note ---
Date of Service August 29, 2019 Anesthesia Post Procedure Vital Signs Vital Signs: Temp Pulse Pulse Resp BP Pulse Ox 08/29/19 10:45 66 15 116/73 94 08/29/19 10:30 67 13 119/77 94 08/29/19 10:20 97.5 F L 61 13 131/77 94 08/29/19 10:10 65 14 124/75 94 08/29/19 10:00 56 L 14 130/69 94 08/29/19 09:50 57 L 20 126/79 95 08/29/19 09:40 59 L 14 124/82 98 08/29/19 09:30 63 15 128/80 99 08/29/19 09:23 97.0 F L 67 15 137/89 99 08/29/19 06:24 98.4 F 74 18 142/87 H 96 Pain Intensity Bilateral Neck: Pain Intensity: 6 Transfer of Care Handoff Completed per policy Notes Mental Status: alert / awake / arousable and participated in evaluation Patient Amnestic to Procedure: Yes Nausea / Vomiting: adequately controlled Pain: adequately controlled Airway Patency, RR, SpO2: stable & adequate BP & HR: stable & adequate Hydration State: stable & adequate Anesthetic Complications: no major complications apparent and Pt Satisfied with anesthetic care
[2019-08-29] MEDS ORDERED: RACEPINEPHRINE 2.25% NEBU SOLN 0.5 ML VIAL INH PRN (11:09)
[2019-08-29] MEDS ORDERED: METOCLOPRAMIDE HCL INJ 5 MG/ML 2 ML VIAL IV PRN (11:09)
[2019-08-29] MEDS ORDERED: LORazepam 0.5 MG TAB PO PRN (11:09)
[2019-08-29] MEDS ORDERED: ONDANSETRON 4 MG OD TAB PO PRN (11:09)
[2019-08-29] MEDS ORDERED: NON-FORMULARY MEDICATION (Aspirin-Acetaminophen-Caffeine [Excedrin Migraine] 1 TAB) PO PRN (11:09)
[2019-08-29] MEDS ORDERED: ALUMINUM/MAGNESIUM SUSP 30 ML UDC PO PRN (11:09)
[2019-08-29] MEDS ORDERED: DO NOT ADMINISTER FLU VACCINE PRN (11:09)
[2019-08-29] MEDS ORDERED: ACETAMINOPHEN 500 MG TAB PO PRN (11:09)
[2019-08-29] MEDS ORDERED: ACETAMINOPHEN 325 MG TAB PO PRN (11:09)
[2019-08-29] MEDS ORDERED: LORazepam 0.5 MG/1 ML VIAL IV PRN (11:09)
[2019-08-29] MEDS ORDERED: FAMOTIDINE 20 MG TAB PO PRN (11:09)
[2019-08-29] MEDS ORDERED: HYDROmorphone INJ 1 MG/ML SYRINGE IV PRN (11:09)
[2019-08-29] MEDS ORDERED: DO NOT ADMINISTER PNEUMOCOCCAL VACCINE PRN (11:09)
[2019-08-29] MEDS ORDERED: NALOXONE HCL 0.4 MG/1 ML VIAL/CARP IV PRN (11:09)
[2019-08-29] MEDS ORDERED: PROMETHAZINE HCL 12.5 MG in SODIUM CHLORIDE 0.9% 50 ML IV PRN (11:09)
[2019-08-29] MEDS ORDERED: HYDROmorphone INJ 0.5 MG/0.5 ML SYR IV PRN (11:09)
[2019-08-29] MEDS ORDERED: SOD PHOSPHATE/SOD BIPHOSPHATE ENEMA 132 ML BTL PR PRN (11:09)
[2019-08-29] MEDS ORDERED: MAGNESIUM HYDROXIDE SUSP 30 ML UDC PO PRN (11:09)
[2019-08-29] MEDS ORDERED: ACETAMINOPHEN 1,000 MG/100 ML VIAL IV PRN (11:09)
[2019-08-29] MEDS ORDERED: DEXAMETHASONE SOD PHOSPHATE 8 MG in SYRINGE 0 ML IV PRN (11:09)
[2019-08-29] MEDS: LACTATED RINGER'S 1,000 ML IV SCH ×2 (11:52→18:41)
[2019-08-29] MEDS: GABAPENTIN 600 MG TAB PO SCH ×3 (12:59→20:18)
[2019-08-29] MEDS ORDERED: FLUTICASONE PROPIONATE NA SPR 16 GM BTL PRN (13:00)
[2019-08-29] MEDS: CEFAZOLIN 2000MG 2,000 MG/15 ML SYR IV SCH ×2 (14:10→22:33)
[2019-08-29] MEDS: OXYCODONE HCL IR 5 MG TAB (IMMEDIATE RELEASE) PO PRN ×2 (15:20→20:18)
[2019-08-29] MEDS ORDERED: CHECK SCOPOLAMINE PATCH PLACEMENT SCH (16:00)
[2019-08-29] MEDS: BACLOFEN 10 MG TAB PO SCH (20:18)
[2019-08-29] MEDS: BuPROPion SR 150 MG TABCR PO SCH (20:18)
[2019-08-29] MEDS ORDERED: DOCUSATE SODIUM/SENNA 50/8.6MG TAB PO SCH (21:00)
[2019-08-30] MEDS: OXYCODONE HCL IR 5 MG TAB (IMMEDIATE RELEASE) PO PRN ×3 (00:28→10:10)
[2019-08-30] MEDS ORDERED: POLYETHYLENE (MIRALAX) 17 GM PACK PO SCH (06:00)
[2019-08-30] MEDS: BuPROPion SR 150 MG TABCR PO SCH (08:51)
[2019-08-30] MEDS: BACLOFEN 10 MG TAB PO SCH (08:51)
[2019-08-30] MEDS: GABAPENTIN 600 MG TAB PO SCH (08:51)
[2019-08-30] MEDS ORDERED: PANTOprazole 40 MG TAB PO SCH (09:00)
--- NOTE | 2019-08-30 09:31 | Discharge Summary ---
Date of Service August 30, 2019 Admission HPI Per Admitting Provider This is a 49-year-old male presents with chronic persistent neck and arm symptoms. After failing extensive course of nonoperative care he is here for surgical intervention. Principal Diagnosis Cervical spinal stenosis with radiculopathy Discharge Data Allergies Allergy/AdvReac Type Severity Reaction Status Date / Time tramadol AdvReac Unknown lightheaded, Verified 08/29/19 06:21 dizziness Procedures Performed Operation Date: 08/29/19 07:45 Actual Procedures p C5-C7 Anterior Cervical Discectomy Fusion, Placement of Interbody, Spinal Cord Monitoring - Nick De Anda DO Ordered Studies 08/29/19 07:45 FL cervical 2-3V Routine FL fluoroscopy <1hr Routine Hospital Course (1) Cervical stenosis of spinal canal: Patient tolerated surgery well was taken to orthopedic floor postoperative. Neck pain controlled arm symptoms markedly improved. Swallowing well. No hoarseness. Is expected testing. KEYUR drain decreasing probably. Subsequently discharged home. Discharge orders instructions from the chart for further review. Total Time Total Time Spent Total Time Spent (In Minutes): 20 minutes Discharge Plan Discharge Items Patient Disposition: Home - Self-Care Reason For Visit: Spinal Stenosis, Cervical Region Discharge Diagnosis: Cervical spinal stenosis with radiculopathy Activity: As commented below Non-emergency contact: Primary Care Provider Call non-emergency contact if: you have any medication questions Follow-up/Referrals: Salvador Chavez MD [Primary Care Provider] - Diet: Regular Addtl Attending Provider Instructions: ACTIVITY RECOMMENDATIONS: SELF CARE INSTRUCTIONS AFTER CERVICAL FUSIONS 1. No smoking. Smoking drastically decreases the chance of a solid fusion. 2. No bending, lifting more than 5 pounds, or twisting (roll like a log when turning in bed). 3. You may shower 3 days after surgery. Thoroughly dry wound. Do not soak in the tub. 4. Cervical collar: Must be worn at all times including sleeping. You may remove the brace only to bath, eat and if you are sitting in a recliner. 5. Please walk as much as you can for exercise. Gradually increase the distance that you walk as your endurance increases. SPECIAL CARE INSTRUCTIONS: VERY IMPORTANT TO READ AND REVIEW A. Do not take any anti-inflammatory medications (i.e. Indocin, Advil, Aspirin, Naprosyn, Aleve, Motrin, etc.) as these may inhibit the chance of a solid fusion. Tylenol is okay to take. B. Your surgical incision has been closed with a cosmetic suture under the skin that will dissolve in about 6 weeks. In 14 days, you can use a pair of clean scissors and cut the suture that is left outside of the skin at the ends of your incision. C. Complications are uncommon, but please contact us if you have any signs or symptoms of: 1. wound infection (fever higher than 102.5 degrees F, redness, separation of wound, drainage, or increasing pain from the incision) 2. blood clots in legs (pain, swelling, redness and warmth in legs) 3. urinary tract infection (fever higher than 102.5 degrees, burning upon urination or increased frequency of urination) 4. nerve problems (inability to walk on your toes or heels, numbness, loss of bowel or bladder control) 5. any other symptoms that concern you. D. Please call the office at if you have any concerns or questions about your operation or recovery. MANAGING PAIN AFTER SPINAL SURGERY 1. Narcotic medication is intended for short-term use and will be provided for surgical pain. Surgical pain usually lasts for a period of 4-6 weeks. Narcotic medication includes Percocet, Vicodin, Darvocet, Tylenol #3 or Lortab. 2. Longer-term pain is more appropriately treated with non-narcotic medication such as Tylenol ES. 3. Muscle spasm is not appropriately treated with narcotics. Muscle relaxers such as Soma, Flexeril or Skelaxin can be used along with Tylenol ES. 4. Remember that we all live with some "aches and pains". This is not unusual or uncommon after an injury or as we get older. 5. We will provide appropriate medication within the normal guidelines of their prescribed use. We will also be very cautious and aware of potential abuse and extended duration of patients' medication needs. 6. Please allow 2-3 days to process refills. Prescriptions will not be mailed but must be picked up at the office. FOLLOW UP VISIT: Keep your scheduled follow-up appointment. Any questions, please call the office at . Pending Studies at Discharge: No Stand-Alone Forms: My [email or web address], Smoking Cessation Medications and DC Order Prescriptions: New tramadol 50 mg tablet 50 mg PO Q6H PRN (Reason: pain, moderate) Qty: 15 RF: 0 oxycodone 5 mg tablet 5 mg PO Q6H PRN (Reason: pain, severe) Qty: 20 RF: 0 Continued acetaminophen [Tylenol] 325 mg Tablet 325 mg PO QID PRN (Reason: Headache) RF: 0 gabapentin 600 mg Tablet 600 mg PO QID RF: 0 meloxicam 15 mg Tablet 15 mg PO QAM RF: 0 pantoprazole [Protonix] 40 mg Tablet,Delayed Release (Dr/Ec) 40 mg PO QAM RF: 0 Excedrin Migraine 250-250-65 mg Tablet 1 tab PO Q6H PRN (Reason: Pain) RF: 0 Wellbutrin SR 1 tab PO BID RF: 0 fluticasone propionate 50 mcg/actuation spray,suspension 50 mcg INTRANASAL UD PRN (Reason: Congestion) RF: 0 Discontinued baclofen 5 mg Tablet 15 mg PO BID RF: 0 Discharge Orders: Discharge Order (Routine); Ordered 08/30/19 Ordered By: Nick De Anda Admission Data Admit Date/Time: 08/29/19 09:08 Attending Provider: Nick De Anda Admit Provider: Nick De Anda Primary Care Provider: Salvador Chavez
[2019-08-31] MEDS ORDERED: bisacodyL 10 MG SUPP PR PRN (09:08)
== END 2019-08-30 10:20 | disposition home or self-care (01) ==
LOC: 3E 05:52 → ASU 05:52